=== PATIENT | female | born 1965 | race Caucasian/White ===

== ENCOUNTER 2019-04-04 09:13 | Emergency (ER) | payer BC, OTHER ==
[~2019-04-04] VITALS: Ht 162.6 cm; Wt 108.9 kg
[~2019-04-04 09:13] MED LIST: HYDROCHLOROTHIA25 M1; VERAPAMIL E.R240 M1
[2019-04-04] MEDS ORDERED: FEMARA2.5 MG PO (09:24)
[2019-04-04] MEDS ORDERED: BYSTOLIC10 MG PO (09:24)
[2019-04-04] MEDS ORDERED: EDARBYCLOR 40-1 EAC1 PO (09:25)
[2019-04-04 09:55] LABS: ABSOLUTE NEUTROPHILS 5.3 thou/uL (1.4-8.2); BASOPHILS 0.3 % (0.0-2.0); EOSINOPHILS 0.3 % (0.0-3.0); HEMATOCRIT 39.6 % (37.0-47.0); HEMOGLOBIN 13.5 gm/dL (12.0-15.0); LYMPHOCYTES 13.9 % (24.0-44.0); MCH 31.3 pg (26.0-34.0); MCV 92.1 fL (80.0-100.0); MONOCYTES 3.7 % (1.0-8.0); PLATELET COUNT 168 thou/uL (150-400); POLYS 81.8 % (36.0-66.0); WBC 6.5 thou/uL (4.0-11.0)
[2019-04-04 10:04] LABS: ANION GAP 10 mmol/L (7-16); BUN 14 mg/dL (7-18); CALCIUM 9.6 mg/dL (8.5-10.1); CHLORIDE 106 mmol/L (98-107); CO2 25 mmol/L (21-32); CREATININE 0.8 mg/dL (0.6-1.0); GLUCOSE 117 mg/dL (74-106); POTASSIUM 3.7 mmol/L (3.5-5.1); SODIUM 141 mmol/L (136-145)
[2019-04-04 10:14] LABS: DIRECT BILIRUBIN 0.1 mg/dL (<0.1-0.3); SGOT 35 U/L (15-37); SGPT 79 U/L (30-65); TOTAL BILIRUBIN 0.5 mg/dL (<0.1-1.0); TOTAL PROTEIN 7.6 g/dL (6.4-8.2); TROPONIN-I <0.06 ng/mL (<0.06)
--- NOTE | 2019-04-04 11:46 | EKG ---
[address] [place] [place] [address] ELECTROCARDIOGRAM REPORT Name: QUILESRICHI [facility] [id number] Admission: 04/04/19 Attend Phys: Discharge: Date of : 69 Report #: [id number] THIS REPORT FOR: //name// [facility] ED Test Date: 2019-04-04 Test Time: 09:18:23 Pat Name: RICHI QUILES Department: Room: Gender: F Class B Driver: YOEL : 1965 Requested By: Sera Oswald Order Number: [id number] MD: Tom Blood Measurements Intervals [place] Rate: 82 P: 45 LA: 142 QRS: 37 QRSD: 89 T: 77 QT: 404 QTc: 472 Interpretive Statements Sinus rhythm Consider left ventricular hypertrophy No previous ECG available for comparison Electronically Signed On 04-04-2019 11:46:17 CDT by Tom Blood [email or web address] <ELECTRONICALLY SIGNED> By: Tom Blood MD 04/04/19 1146 0918 0918 Tom Blood MD /EPI
[2019-04-04 12:01] VITALS: BP 138/69
== END 2019-04-04 12:02 | disposition home or self-care (01) ==
LOC: ER 09:13
PROVIDERS: Emergency Medicine
DX: R07.9 Chest pain, unspecified (principal); I10 Essential (primary) hypertension; Z85.3 Personal history of malignant neoplasm of breast; Z88.0 Allergy status to penicillin; Z77.22 Contact with and (suspected) exposure to environmental tobacco smoke (acute) (chronic)

== ENCOUNTER → 2020-12-05 | Outpatient (CLI) | payer BC, OTHER ==
[~2020-12-05] MED LIST changes: +BYSTOLIC10 MG PO; +EDARBYCLOR 40-1 EAC1 PO; +FEMARA2.5 MG PO
== END ==
LOC: SJCVCIMAG 11:40
PROVIDERS: ATTEND Internal Medicine Cardiovascular Disease
DX: R10.9 Unspecified abdominal pain (principal); I10 Essential (primary) hypertension